=== PATIENT | female | born 1965 | race Caucasian/White ===

== ENCOUNTER 2019-02-02 00:22 | Emergency (ER) | payer BC, OTHER ==
[~2019-02-02] VITALS: Ht 170.2 cm; Wt 90.7 kg
--- OUTSIDE RECORDS SUMMARY | 2019-02-02 00:25 | XMS REPORT ---
Author Author [facility] Address Unknown Phone Unavailable Care Team Providers Care Group Dynamics Instructor Name Role Phone Unavailable Unavailable Problems This patient has no known problems. Allergies, Adverse Reactions, Alerts This patient has no known allergies or adverse reactions. Medications This patient has no known medications.
[2019-02-02] MEDS ORDERED: DEXAMETHASONE SOD PHOS 10 MG/1 ML VIAL IM ONE (01:00)
== END 2019-02-02 01:15 | disposition home or self-care (01) ==
LOC: FSED 00:22
DX: T78.3XXA Angioneurotic edema, initial encounter (principal)
CPT/HCPCS: 99283